=== PATIENT | male | born 1960 | race Hispanic/Latino ===

== ENCOUNTER 2017-05-16 16:31 | Emergency (ER) | payer MEDICARE ==
[2017-05-16 17:05] VITALS: PULSE 89; RESP 16; TEMP 98.2; O2SAT 99
--- NOTE | 2017-05-16 17:06 | C.PDOC ---
History Of Present Illness 56M c/o right wrist pain after he fell off a 1.5 ft drop off onto concrete onto his outstretched hand around 1230pm today. no head injury or LOC. Time Seen by Provider: 05/16/17 17:06 Chief Complaint (Nursing): Upper Extremity Problem/Injury Past Medical History Vital Signs: Last Vital Signs Temp 98.2 F 05/16/17 17:00 Pulse 89 05/16/17 17:00 Resp 16 05/16/17 17:00 BP 152/105 H 05/16/17 17:00 Pulse Ox 99 05/16/17 17:12 - Medical History PMH: HTN, Hypercholesterolemia Family History: States: Other Other Family History: nc - Social History Hx Alcohol Use: Yes Hx Substance Use: No - Immunization History Hx Tetanus Toxoid Vaccination: No Hx Influenza Vaccination: No Hx Pneumococcal Vaccination: No Review Of Systems Constitutional: Negative for: Fever Neurological: Negative for: Weakness, Numbness Physical Exam - Physical Exam Appears: Well, Non-toxic, No Acute Distress Head: Atraumatic Neck: No Midline Cervical Tenderness Extremity: Normal ROM, Tenderness (over dorsal aspect of right wrist. no asb ttp. normal rom. ), No Swelling, Other (superficial abrasion right elbow. full rom without pain. ) Pulses: Right Radial: Normal Neurological/Psych: Oriented x3, Normal Motor, Normal Sensation ED Course And Treatment O2 Sat by Pulse Oximetry: 99 Medical Decision Making Medical Decision Making: xr wrist right- no acute fracture or dislocation wrist brace nsaid pcp follow up Disposition - Disposition Disposition: HOME/ ROUTINE Disposition Time: 17:43 Condition: GOOD Forms: [facility] (Colombian) - Clinical Impression Clinical Impression: Wrist pain
[2017-05-16] MEDS ORDERED: Bacitracin 500 Units/gm Oint Foilpak UD ONE (18:00)
[2017-05-16 18:06] VITALS: BP 142/98
--- NOTE | 2017-05-17 11:56 | RAD ---
PROCEDURE: Right Wrist Radiographs. HISTORY: foosh COMPARISON: None. FINDINGS: BONES: Normal. No fracture. JOINTS: Normal. No dislocation. . Note made of positive ulnar variance SOFT TISSUES: Normal. OTHER FINDINGS: None. IMPRESSION: No evidence of acute displaced fracture nor dislocation. If symptoms persist or occult fracture suspected clinically recommend repeat radiographs in 5-10 days as most fractures become radiographically evident in this timeframe. . Note made of positive ulnar variance.
== END 2017-05-16 18:15 | disposition home or self-care (01) ==
LOC: C.ER 16:31
DX: M25.531 Pain in right wrist (principal)

== ENCOUNTER 2018-04-14 13:12 | Emergency (ER) | payer MEDICARE ==
[2018-04-14] MEDS ORDERED: Lidocaine 5% Patch TD STA (13:46)
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
[2018-04-14] MEDS ORDERED: Lidocaine 5% Patch TD ONE (13:52)
[2018-04-14 15:11] VITALS: BP 150/110; PULSE 98; RESP 18; TEMP 98.5
--- NOTE | 2018-04-14 15:11 | RAD ---
Date of service: 04/14/2018 PROCEDURE: Radiographs of the Lumbar Spine. HISTORY: pain to low back COMPARISON: No prior. FINDINGS: BONES: Normal alignment. No listhesis. No fracture. Diffuse thoraco lumbar spondylosis DISC SPACES: Most narrowed at L4-5 and L5-S1 OTHER FINDINGS: Atherosclerotic vascular calcifications present. Mild facet hypertrophic arthrosis right greater than left L4-5 and bilateral L5-S1 levels. IMPRESSION: No fracture or subluxation. Degenerative changes as above.
[2018-04-14 15:46] VITALS: O2SAT 96
== END 2018-04-14 15:10 | disposition home or self-care (01) ==
LOC: C.ER 13:12
DX: S39.012A Strain of muscle, fascia and tendon of lower back, initial encounter (principal); X58.XXXA Exposure to other specified factors, initial encounter
CPT/HCPCS: 72100; 96372; 99284; J1885